=== PATIENT | female | born 1950 | race Caucasian/White ===

== ENCOUNTER 2016-12-11 13:08 | Inpatient (IN) | payer MEDICARE ==
[~2016-12-11] VITALS: Ht 162.6 cm; Wt 90.2 kg
[2017-01-13] VITALS (13 sets, daily range): BP systolic 99–152; BP diastolic 46–74; PULSE 68–79; TEMP 97.5–98.9
[2017-01-13] MEDS ORDERED: NORVASC 5MG5 MG/TAB PO (06:34)
[2017-01-13] MEDS ORDERED: HCTZ 25MG TAB25 MG PO (06:34)
[2017-01-13] MEDS ORDERED: TOPROL XL 50MG50 MG PO (06:35)
[2017-01-13] MEDS ORDERED: MULTI VITAMINS1 TAB PO (06:37)
[2017-01-13] MEDS ORDERED: NATURAL E400 IU PO (06:37)
[2017-01-13] MEDS ORDERED: ASPIRIN 32325 MG/TAB PO (06:38)
[2017-01-13] MEDS ORDERED: CALCIUM 600600 M2 PO (06:38)
[2017-01-14 01:31] VITALS: BP 124/53; PULSE 67; TEMP 97.7
[2017-01-14 05:06] VITALS: BP 135/62; PULSE 67; TEMP 97.9
[2017-01-14 10:52] VITALS: BP 137/70; PULSE 67; TEMP 97.5
[2017-01-14 12:47] VITALS: BP 125/55; PULSE 70; TEMP 97.3
[2017-01-14 16:37] VITALS: BP 133/65; PULSE 62; TEMP 97.7
[2017-01-14 21:15] VITALS: BP 124/46; PULSE 76; TEMP 98.9
[2017-01-15 04:55] VITALS: BP 138/51; PULSE 77; TEMP 99
[2017-01-15 09:29] VITALS: BP 138/99; PULSE 83; TEMP 98.4
[2017-01-15] MEDS ORDERED: ASPIRIN 32325 MG/TAB PO (13:27)
[2017-01-15 14:04] VITALS: BP 146/70; PULSE 71; TEMP 98.2
== END 2017-01-15 15:39 | disposition home or self-care (01) | DRG 748 ==
LOC: INPTSU 01-13 05:10 → SURG 01-13 07:30
PROVIDERS: Urology
PROC: 0DNW4ZZ Release Peritoneum, Percutaneous Endoscopic Approach (ICD-10-PCS; 2017-01-13)
PROC: 8E0W4CZ Robotic Assisted Procedure of Trunk Region, Percutaneous Endoscopic Approach (ICD-10-PCS; 2017-01-13)
PROC: 0USG4ZZ Reposition Vagina, Percutaneous Endoscopic Approach (ICD-10-PCS; principal; 2017-01-13 07:30)
DX: N99.3 Prolapse of vaginal vault after hysterectomy (principal); N39.41 Urge incontinence; I10 Essential (primary) hypertension; M79.7 Fibromyalgia; N73.6 Female pelvic peritoneal adhesions (postinfective); Z85.6 Personal history of leukemia
CPT/HCPCS: A4315; C1713; C1781; J0330; J0690; J1100; J1170; J1885; J2250; J2405; J2704; J2710; J3010; J7120